=== PATIENT | male | born 1975 ===

== ENCOUNTER 2020-05-17 07:00 | Outpatient (CLI) | payer OTHER | END 2020-05-17 23:59 | disposition home or self-care (01) | LOC: LAB.R 07:00 | PROVIDERS: ATTEND Nurse Practitioner Family | DX: R05 Cough (principal); Z20.828 Contact with and (suspected) exposure to other viral communicable diseases ==

== ENCOUNTER 2022-01-01 12:26 | Outpatient (CLI) | payer OTHER ==
[2022-01-02 01:33] LABS: CHLAMYDIA TRACHOMATIS DNA NEGATIVE (NEGATIVE); NEISSERIA GONORRHOEAE DNA NEGATIVE (NEGATIVE)
[2022-01-03 05:11] LABS: HBsAG SCREEN Negative (Negative); HEPATITIS B SURFACE AB QUAL Reactive (.); HIV SCREEN 4TH GENERATION Non Reactive (Non Reactive)
[2022-01-03 06:09] LABS: RPR Non Reactive (Non Reactive)
== END 2022-01-01 12:27 | disposition home or self-care (01) ==
LOC: LAB.S 12:26
PROVIDERS: ATTEND Nurse Practitioner Family
DX: N48.9 Disorder of penis, unspecified (principal)
CPT/HCPCS: 36415; 86592; 86706; 87340; 87389; 87491; 87591; 87661

== ENCOUNTER 2023-10-09 10:55 | Outpatient (CLI) | payer OTHER ==
--- NOTE | 2023-10-09 11:26 | XRAY Report ---
PROCEDURE: Cervical Spine 2-3V INDICATIONS: NUMBNESS AND TINGLING SENSATION OF SKIN TECHNIQUE: 3 view(s) of the cervical spine were acquired. COMPARISON: None. FINDINGS: Bones: No fractures or dislocations to the C7-T1 level. Straightening of normal cervical lordosis is seen. Mild degenerative endplate changes is seen at C5-6 and C6-7 levels. The lateral masses of C1 appear intact on the odontoid view. No suspicious bony lesions. Soft tissues: No prevertebral soft tissue swelling. IMPRESSION: No displaced fracture or traumatic subluxation. Mild degenerative endplate changes in lower cervical spine. Reviewed by: Mark Verma MD on 10/09/2023 11:24 AM PDT Approved by: Mark Verma MD on 10/09/2023 11:24 AM PDT Station ID: [id number]
== END 2023-10-09 10:56 | disposition home or self-care (01) ==
LOC: DI.S 10:55
PROVIDERS: ATTEND Registered Nurse
DX: M47.812 Spondylosis without myelopathy or radiculopathy, cervical region (principal)